=== PATIENT | female | born 1970 | race African-American/Black ===

== ENCOUNTER 2017-01-11 11:42 | Emergency (ER) | payer SELFPAY ==
[~2017-01-11 11:42] MED LIST: AT25 PO; EFFEXOR XR150 MG PO; GLUCOPHAGE1000 MG PO; GLUCPH PO; HAIR PO; LIBRAX PO; LORTAB 5 PO; LORTAB10 PO; TEARS NATURA OPH; TENORETIC1 TAB PO; VITAMIN PO; ZESTORETIC1 TA1 PO
== END 2017-01-11 16:26 | disposition home or self-care (01) ==
LOC: ER 11:42
DX: S39.012A Strain of muscle, fascia and tendon of lower back, initial encounter (principal); I10 Essential (primary) hypertension; F32.9 Major depressive disorder, single episode, unspecified; Z88.8 Allergy status to other drugs, medicaments and biological substances; Z79.84 Long term (current) use of oral hypoglycemic drugs; Z79.891 Long term (current) use of opiate analgesic; Z79.899 Other long term (current) drug therapy; W10.9XXA Fall (on) (from) unspecified stairs and steps, initial encounter; Z88.2 Allergy status to sulfonamides
CPT/HCPCS: 71020; 71100-LT; 72100; 99283